=== PATIENT | male | born 1965 | race African-American/Black ===

== ENCOUNTER 2022-10-15 11:48 | Inpatient (IN) | payer MEDICAID ==
[~2022-10-15] VITALS: Ht 188 cm; Wt 86.2 kg
[2022-10-15] MEDS ORDERED: SODIUM CHLORIDE 0.9% 1000ML BAG (SEPSIS BOLUS) IV ONE (12:45)
[2022-10-15 14:49] LABS: BASOPHILS % 0.3 % (0.0-2.0); EOSINOPHILS % 3.1 % (0.0-5.0); HEMATOCRIT. 32.6 % (42.0-52.0); HEMOGLOBIN. 10.8 g/dL (14.0-18.0); MEAN CORPUSCULAR HEMOGLOBIN 27.3 pg (28.0-32.0); MEAN CORPUSCULAR VOLUME 82.6 fL (80.0-94.0); MEAN PLATELET VOLUME 7.1 fl (7.4-10.4); NEUTROPHILS % 84.6 % (40.0-76.0); PLATELET 375 x1000/uL (130-400); RED BLOOD CELL COUNT 3.95 mill/uL (4.7-6.1); RED CELL DISTRIBUTION WIDTH 15.9 % (11.6-14.6)
[2022-10-15 14:59] LABS: PARTIAL THROMBOPLASTIN TIME 25.7 sec (23.4-31.0); PROTHROMBIN TIME 10.9 sec (9.6-11.0)
[2022-10-15 15:01] LABS: CHLORIDE 104 mEq/L (98-107)
[2022-10-15 15:11] LABS: ETHANOL BLOOD < 10 mg/dL
[2022-10-15] MEDS ORDERED: ASPIRIN 325MG EC TABLET PO ONE (15:45)
[2022-10-15 20:21] LABS: CLARITY URINE CLEAR (CLEAR); COLOR URINE YELLOW (YELLOW); KETONES URINE NEGATIVE (NEGATIVE); LEUKOCYTE ESTERASE URINE NEGATIVE (NEGATIVE); NITRITE URINE NEGATIVE (NEGATIVE); OCCULT BLOOD URINE NEGATIVE (NEGATIVE); PH URINE 6.5 (4.5-8.0); PROTEIN URINE NEGATIVE (NEGATIVE); SPECIFIC GRAVITY URINE 1.015 (1.005-1.030)
[2022-10-15 21:35] LABS: *AMPHETAMINES SCREEN URINE PRESUMTIVE POSITIVE (NEGATIVE); *BARBITURATES SCREEN URINE NEGATIVE (NEGATIVE); *BENZODIAZEPINES SCREEN URINE NEGATIVE (NEGATIVE); *COCAINE SCREEN URINE NEGATIVE (NEGATIVE); CANNABINOID URINE SCREEN NEGATIVE (NEGATIVE); METHADONE URINE SCREEN NEGATIVE (NEGATIVE); OPIATES URINE SCREEN NEGATIVE (NEGATIVE); PHENCYCLIDINE URINE SCREEN NEGATIVE (NEGATIVE)
[2022-10-16 09:30] VITALS: BP 117/74
== END 2022-10-16 11:10 | disposition left against medical advice (07) | DRG 207 ==
LOC: ER 11:59 → 8WST 16:14 → EDBEDREQ 16:15
PROVIDERS: ADMIT Internal Medicine; ATTEND Internal Medicine
DX: I95.9 Hypotension, unspecified (principal); E11.9 Type 2 diabetes mellitus without complications; I10 Essential (primary) hypertension; Z53.29 Procedure and treatment not carried out because of patient's decision for other reasons; R41.82 Altered mental status, unspecified
CPT/HCPCS: 36415; 71045; 80053; 80305; 80320; 81003; 83605; 83880; 84145; 84484; 85025; 93005; 99285; J7030; G0480

== ENCOUNTER 2023-11-14 13:09 | Emergency (ER) | payer MEDICAID ==
[~2023-11-14] VITALS: Ht 177.8 cm; Wt 82.0 kg
[2023-11-14] MEDS ORDERED: BENZ1TAB78 PO (13:33)
[2023-11-14] MEDS ORDERED: DIPH25TA23 PO (13:33)
[2023-11-14] MEDS ORDERED: CHLO25TA2 PO (13:33)
[2023-11-14] MEDS ORDERED: HALO100A2 IM (13:33)
[2023-11-14] MEDS ORDERED: SPIR25TA6 PO (13:33)
[2023-11-14] MEDS ORDERED: ATOR40TA70 PO (13:33)
[2023-11-14] MEDS ORDERED: TELM40TA7 PO (13:33)
[2023-11-14] MEDS ORDERED: METF-874 PO (13:33)
[2023-11-14] MEDS ORDERED: GLIP10TA10 PO (13:33)
[2023-11-14] MEDS ORDERED: AMLO5TAB88 PO (13:33)
[2023-11-14] MEDS ORDERED: LACTATED RINGERS 1,000 ML IV SCH ×3 (13:45→17:00)
[2023-11-14] MEDS ORDERED: LEVETIRACETAM 500MG PREMIX 100 ML IV ONE ×2 (13:45)
[2023-11-14] MEDS ORDERED: MIDAZOLAM HCL 2 MG/2 ML VIAL IV ONE (15:00)
[2023-11-14 15:10] LABS: HEMATOCRIT. 32.7 % (42.0-52.0); MEAN CORPUSCULAR HEMOGLOBIN 23.8 pg (28.0-32.0); MEAN CORPUSCULAR HGB CONC 30.6 g/dL (31.0-37.0); MEAN CORPUSCULAR VOLUME 77.8 fL (80.0-94.0); MEAN PLATELET VOLUME 7.7 fl (7.4-10.4); PLATELET 486 x1000/uL (130-400); RED CELL DISTRIBUTION WIDTH 18.8 % (11.6-14.6); WHITE BLOOD COUNT 9.8 x1000/uL (4.5-11.0)
[2023-11-14 15:18] LABS: DIFFERENTIAL COMMENT 1
[2023-11-14 15:51] VITALS: O2SAT 100
[2023-11-14 15:59] LABS: ANISOCYTOSIS 1+; HYPOCHROMASIA 1+; MICROCYTOSIS 1+; PLATELET ESTIMATE INCREASED
[2023-11-14 16:04] LABS: CLARITY URINE CLEAR (CLEAR); COLOR URINE YELLOW (YELLOW); GLUCOSE URINE 3+ (NEGATIVE); KETONES URINE TRACE (NEGATIVE); LEUKOCYTE ESTERASE URINE NEGATIVE (NEGATIVE); NITRITE URINE NEGATIVE (NEGATIVE); OCCULT BLOOD URINE TRACE (NEGATIVE); PROTEIN URINE TRACE (NEGATIVE); SPECIFIC GRAVITY URINE 1.028 (1.005-1.030)
[2023-11-14 16:21] LABS: ALANINE AMINOTRANSFERASE 19 IU/L (10-49); ALBUMIN 3.8 g/dL (3.2-4.8); ASPARTATE AMINOTRANSFERASE 17 IU/L (<34); BILIRUBIN TOTAL 0.4 mg/dL (0.1-1.0); CARBON DIOXIDE 23 mEq/L (21-32); CHLORIDE 96 mEq/L (98-107); CREATININE 1.5 mg/dL (0.6-1.3); POTASSIUM 4.9 mEq/L (3.5-5.1); PROTEIN TOTAL 9.3 g/dL (6.0-8.3); SODIUM 127 mEq/L (136-145); UREA NITROGEN BLOOD 20 mg/dL (9-23)
[2023-11-14 16:27] LABS: ACETAMINOPHEN < 2 ug/mL (10-30)
[2023-11-14 16:31] LABS: ETHANOL BLOOD < 10 mg/dL (<10); GLUCOSE 771 mg/dL (70-105)
[2023-11-14 16:32] LABS: BACTERIA URINE TRACE; RBC URINE 0-2 /hpf (0-2); SQUAMOUS EPITHELIAL CELL URINE RARE /lpf (RARE/1+); WBC URINE 0-2 /hpf (0-2)
[2023-11-14] MEDS ORDERED: INSULIN REGULAR (DRIP) 100 UNITS in SODIUM CHLORIDE 0.9% 99 ML IV STA (16:41)
[2023-11-14] MEDS: DEXT 5%/0.9% NACL 1,000 ML IV SCH ×2 (16:45→20:03)
[2023-11-14] MEDS ORDERED: KCL 20MEQ/100ML PREMIX 100 ML IV PRN (16:45)
[2023-11-14] MEDS ORDERED: INSULIN REGULAR (HUMULIN R) 300UNITS/3ML VIAL IV ONE (16:45)
[2023-11-14] MEDS ORDERED: INSULIN REGULAR 100U/100ML PMX 100 ML IV NR (17:00)
[2023-11-14 17:03] LABS: BETA HYDROXYBUTYRATE 0.6 mMol/L (0.0-0.3)
[2023-11-14] MEDS: BLOOD SUGAR DIAGNOSTIC STRIP TEST SCH ×7 (17:09→22:45)
[2023-11-14 19:30] VITALS: TEMP 98
[2023-11-14 23:47] LABS: ALANINE AMINOTRANSFERASE 18 IU/L (10-49); ALBUMIN 3.7 g/dL (3.2-4.8); ASPARTATE AMINOTRANSFERASE 18 IU/L (<34); BILIRUBIN TOTAL 0.4 mg/dL (0.1-1.0); CALCIUM 9.2 mg/dL (8.7-10.4); CARBON DIOXIDE 28 mEq/L (21-32); CHLORIDE 106 mEq/L (98-107); CREATININE 1.1 mg/dL (0.6-1.3); GLUCOSE 86 mg/dL (70-105); PHOSPHORUS 2.9 mg/dL (2.5-4.9); POTASSIUM 3.3 mEq/L (3.5-5.1); PROTEIN TOTAL 8.4 g/dL (6.0-8.3); SODIUM 140 mEq/L (136-145); UREA NITROGEN BLOOD 17 mg/dL (9-23)
[2023-11-15] VITALS: BP 147/88; PULSE 79; RESP 18
[2023-11-15] MEDS: BLOOD SUGAR DIAGNOSTIC STRIP TEST SCH ×3 (00:03→01:58)
[2023-11-15] MEDS: DEXT 5%/0.9% NACL 1,000 ML IV SCH (00:14)
[2023-11-15] MEDS ORDERED: SODIUM CHLORIDE 0.9% 1,000 ML IV SCH (01:30)
[2023-11-15] MEDS ORDERED: INSULIN GLARGINE 100 UNITS/ML SUBCUT NR (01:30)
== END 2023-11-15 02:54 | disposition left against medical advice (07) ==
LOC: ER 14:10 → EDBEDREQTM 16:55 → EDBEDREQ 16:55 → ER 11-15 02:54 → CANBEDREQ 11-15 21:37
DX: I73.89 Other specified peripheral vascular diseases (principal); R56.9 Unspecified convulsions; E11.9 Type 2 diabetes mellitus without complications; I10 Essential (primary) hypertension; F20.9 Schizophrenia, unspecified; F17.200 Nicotine dependence, unspecified, uncomplicated; Z88.8 Allergy status to other drugs, medicaments and biological substances; Z88.1 Allergy status to other antibiotic agents
CPT/HCPCS: 80053; 81003; 80307; 82010; 80329; 80320; 82962 ×2; 83735; 83930; 84100; 85025; 87040; 36415; 71045; 70450; 93005; 96365; 96366; 96375; 99291; J1953; J1815 ×3; J2250; J7042; J7050; G0480

== ENCOUNTER 2023-11-19 12:44 | Emergency (ER) | payer MEDICAID ==
[~2023-11-19] VITALS: Ht 177.8 cm; Wt 70.0 kg
[~2023-11-19 12:44] MED LIST: AMLO5TAB88 PO; ATOR40TA70 PO; BENZ1TAB78 PO; CHLO25TA2 PO; DIPH25TA23 PO; GLIP10TA10 PO; HALO100A2 IM; METF-874 PO; SPIR25TA6 PO; TELM40TA7 PO
[2023-11-19 12:49] VITALS: O2SAT 98
[2023-11-19] MEDS ORDERED: SODIUM CHLORIDE 0.9% 1,000 ML IV ONE (13:15)
[2023-11-19 13:31] LABS: HEMOGLOBIN. 9.3 g/dL (14.0-18.0); MEAN CORPUSCULAR HEMOGLOBIN 24.4 pg (28.0-32.0); MEAN CORPUSCULAR HGB CONC 31.1 g/dL (31.0-37.0); MEAN CORPUSCULAR VOLUME 78.5 fL (80.0-94.0); MEAN PLATELET VOLUME 8.6 fl (7.4-10.4); PLATELET 441 x1000/uL (130-400); RED BLOOD CELL COUNT 3.82 mill/uL (4.7-6.1); RED CELL DISTRIBUTION WIDTH 19.1 % (11.6-14.6); WHITE BLOOD COUNT 17.5 x1000/uL (4.5-11.0)
[2023-11-19 13:33] LABS: DIFFERENTIAL COMMENT 1
[2023-11-19 13:39] LABS: INR 1.1; PROTHROMBIN TIME 11.3 sec (9.6-11.0)
[2023-11-19 14:00] LABS: ALANINE AMINOTRANSFERASE 66 IU/L (10-49); ALBUMIN 3.9 g/dL (3.2-4.8); ASPARTATE AMINOTRANSFERASE 119 IU/L (<34); BILIRUBIN TOTAL 0.4 mg/dL (0.1-1.0); CARBON DIOXIDE 18 mEq/L (21-32); CHLORIDE 96 mEq/L (98-107); CREATINE KINASE 5423 IU/L (46-171); POTASSIUM 5.2 mEq/L (3.5-5.1); PROTEIN TOTAL 9.3 g/dL (6.0-8.3); SODIUM 133 mEq/L (136-145); TROPONIN I HIGH SENSITIVITY 13 ng/L (3.0-53); UREA NITROGEN BLOOD 47 mg/dL (9-23)
[2023-11-19 14:06] LABS: CREATININE 2.2 mg/dL (0.6-1.3); ETHANOL BLOOD < 10 mg/dL (<10)
[2023-11-19 14:12] LABS: GLUCOSE 964 mg/dL (70-105); LACTIC ACID 2.8 mmol/L (0.4-2.0)
[2023-11-19] MEDS ORDERED: POTASSIUM CHLORIDE INJ 40 MEQ in SODIUM CHLORIDE 0.9% 230 ML IV PRN ×2 (14:15→22:45)
[2023-11-19] MEDS ORDERED: DEXTROSE 50% WATER 50ML SYRINGE IV PRN ×2 (14:15→22:45)
[2023-11-19] MEDS ORDERED: INSULIN REGULAR (HUMULIN R) 300UNITS/3ML VIAL IV NR (14:15)
[2023-11-19] MEDS ORDERED: KCL 20MEQ/100ML PREMIX 100 ML IV PRN ×2 (14:15→22:45)
[2023-11-19 14:26] LABS: BETA HYDROXYBUTYRATE 2.6 mMol/L (0.0-0.3)
[2023-11-19] MEDS ORDERED: INSULIN REGULAR 100U/100ML PMX 100 ML IV SCH (14:30)
[2023-11-19] MEDS: BLOOD SUGAR DIAGNOSTIC STRIP TEST SCH ×7 (15:08→23:45)
[2023-11-19 15:38] LABS: PHOSPHORUS 6.5 mg/dL (2.5-4.9); TROPONIN I HIGH SENSITIVITY 13 ng/L (3.0-53)
[2023-11-19 15:43] LABS: ANISOCYTOSIS 2+; HYPOCHROMASIA 1+; MICROCYTOSIS 1+; PLATELET ESTIMATE SLIGHTLY INCREASED
[2023-11-19] MEDS: DEXT 5%/LACTATED RINGERS 1,000 ML IV SCH ×3 (16:17→22:15)
[2023-11-19] MEDS: LACTATED RINGERS 1,000 ML IV SCH ×2 (16:17→18:15)
[2023-11-19 16:23] LABS: CLARITY URINE CLEAR (CLEAR); COLOR URINE YELLOW (YELLOW); GLUCOSE URINE 3+ (NEGATIVE); KETONES URINE TRACE (NEGATIVE); LEUKOCYTE ESTERASE URINE NEGATIVE (NEGATIVE); NITRITE URINE NEGATIVE (NEGATIVE); OCCULT BLOOD URINE 3+ (NEGATIVE); PH URINE 5.5 (4.5-8.0); PROTEIN URINE 1+ (NEGATIVE); SPECIFIC GRAVITY URINE 1.029 (1.005-1.030); UROBILINOGEN URINE 0.2 E.U./dL (0.2-1.0)
[2023-11-19 16:39] LABS: *AMPHETAMINES SCREEN URINE PRESUMPTIVE POSITIVE (NEGATIVE); *BARBITURATES SCREEN URINE NEGATIVE (NEGATIVE); *BENZODIAZEPINES SCREEN URINE NEGATIVE (NEGATIVE); *COCAINE SCREEN URINE NEGATIVE (NEGATIVE); CANNABINOID URINE SCREEN NEGATIVE (NEGATIVE); ECSTASY MDMA SCREEN URINE NEGATIVE (NEGATIVE); METHADONE URINE SCREEN Neg (NEGATIVE); OPIATES URINE SCREEN NEGATIVE (NEGATIVE); PHENCYCLIDINE URINE SCREEN NEGATIVE (NEGATIVE)
[2023-11-19 17:31] LABS: BACTERIA URINE NONE SEEN; RBC URINE 0-2 /hpf (0-2); SQUAMOUS EPITHELIAL CELL URINE NONE SEEN /lpf (RARE/1+)
[2023-11-19 17:32] LABS: WBC URINE 0-2 /hpf (0-2); YEAST URINE NONE SEEN
[2023-11-19] MEDS ORDERED: ONDANSETRON HCL 4MG/2ML INJ IV PRN (22:45)
[2023-11-19] MEDS ORDERED: SODIUM PHOS,M-BASIC-D-BASIC 15 MM in SODIUM CHLORIDE 0.9% 245 ML IV PRN (22:45)
[2023-11-19] MEDS ORDERED: DEXT 5%/0.9% NACL 1,000 ML IV PRN (22:45)
[2023-11-19] MEDS ORDERED: CLONIDINE 0.1MG TABLET PO PRN (22:45)
[2023-11-19] MEDS ORDERED: MAGNESIUM 2 G PREMIX 100 ML IV PRN (22:45)
[2023-11-19] MEDS ORDERED: SODIUM CHLORIDE 0.9% 1,000 ML IV PRN (22:45)
[2023-11-19] MEDS ORDERED: ACETAMINOPHEN 325MG TABLET PO PRN (22:45)
[2023-11-19] MEDS ORDERED: PIPERACILLIN/TAZO 3.375G/50ML 50 ML IV SCH (22:45)
[2023-11-20] MEDS: BLOOD SUGAR DIAGNOSTIC STRIP TEST SCH ×13 (01:45→09:50)
[2023-11-20] MEDS: LACTATED RINGERS 1,000 ML IV SCH ×3 (02:15→08:16)
[2023-11-20 02:18] VITALS: TEMP 98.6
[2023-11-20 04:02] LABS: HEMATOCRIT. 27.2 % (42.0-52.0); HEMOGLOBIN. 8.9 g/dL (14.0-18.0); MEAN CORPUSCULAR HEMOGLOBIN 24.2 pg (28.0-32.0); MEAN CORPUSCULAR HGB CONC 32.6 g/dL (31.0-37.0); MEAN CORPUSCULAR VOLUME 74.4 fL (80.0-94.0); MEAN PLATELET VOLUME 8.2 fl (7.4-10.4); PLATELET 458 x1000/uL (130-400); RED BLOOD CELL COUNT 3.66 mill/uL (4.7-6.1); RED CELL DISTRIBUTION WIDTH 18.4 % (11.6-14.6); WHITE BLOOD COUNT 20.3 x1000/uL (4.5-11.0)
[2023-11-20 04:11] LABS: DIFFERENTIAL COMMENT 1
[2023-11-20 04:20] LABS: ALANINE AMINOTRANSFERASE 78 IU/L (10-49); ALBUMIN 3.6 g/dL (3.2-4.8); ASPARTATE AMINOTRANSFERASE 152 IU/L (<34); BILIRUBIN TOTAL 0.4 mg/dL (0.1-1.0); CALCIUM 8.9 mg/dL (8.7-10.4); CARBON DIOXIDE 22 mEq/L (21-32); CHLORIDE 107 mEq/L (98-107); PHOSPHORUS 4.8 mg/dL (2.5-4.9); POTASSIUM 4.3 mEq/L (3.5-5.1); PROTEIN TOTAL 8.7 g/dL (6.0-8.3); SODIUM 144 mEq/L (136-145); UREA NITROGEN BLOOD 57 mg/dL (9-23)
[2023-11-20 04:26] LABS: GLUCOSE 219 mg/dL (70-105)
[2023-11-20 04:47] VITALS: RESP 15
[2023-11-20] MEDS: DEXT 5%/LACTATED RINGERS 1,000 ML IV SCH ×2 (06:15→08:16)
[2023-11-20] MEDS: INSULIN REGULAR 100U/100ML PMX 100 ML IV SCH ×2 (07:10→09:30)
[2023-11-20 08:57] LABS: ANISOCYTOSIS 1+; HYPOCHROMASIA 1+; MICROCYTOSIS 2+; PLATELET ESTIMATE INCREASED
[2023-11-20] MEDS ORDERED: PANTOPRAZOLE SODIUM 40 MG/VIAL IV SCH (09:00)
[2023-11-20] MEDS ORDERED: ENOXAPARIN 40MG/0.4ML SYR SUBCUT SCH (09:00)
[2023-11-20 10:00] VITALS: BP 120/90; PULSE 92
[2023-11-20 10:23] LABS: CALCIUM 8.6 mg/dL (8.7-10.4); CARBON DIOXIDE 21 mEq/L (21-32); CHLORIDE 107 mEq/L (98-107); GLUCOSE 290 mg/dL (70-105); PHOSPHORUS 4.5 mg/dL (2.5-4.9); POTASSIUM 4.3 mEq/L (3.5-5.1); SODIUM 142 mEq/L (136-145); UREA NITROGEN BLOOD 58 mg/dL (9-23)
== END 2023-11-20 10:46 | disposition left against medical advice (07) ==
LOC: ER 12:44 → EDBEDREQ 14:26 → EDBEDREQSVC 14:27 → ER 11-20 10:46
DX: E11.10 Type 2 diabetes mellitus with ketoacidosis without coma (principal); R41.82 Altered mental status, unspecified; I10 Essential (primary) hypertension; F20.9 Schizophrenia, unspecified; Z79.899 Other long term (current) drug therapy
CPT/HCPCS: 80053 ×2; 80305; 81003; 82010; 80320; 82550; 82962 ×2; 83605; 83690; 83735 ×2; 83930; 84100 ×2; 85025 ×2; 85610; 84484; 36415 ×2; 71045; 72170; 70450; 70486; 74176; 82803; 93005; 96365; 96375 ×2; 99285; 80051; 80048; 96372; J1815 ×3; J7030; Z7610 ×2; J1650; C9113; G0480